=== PATIENT | female | born 1990 | race Hispanic/Latino ===

== ENCOUNTER 2020-03-02 01:32 | Inpatient (IN) | payer MEDICAID, OTHER ==
[2020-03-02] MEDS ORDERED: Promethazine HCl 25 MG/ML VIAL IM PRN ×4 (02:10→15:09)
[2020-03-02] MEDS ORDERED: Carboprost 250 MCG/ML AMP IM PRN (02:10)
[2020-03-02] MEDS ORDERED: Methylergonovine 0.2 MG/ML VIAL IM PRN (02:10)
[2020-03-02] MEDS ORDERED: Ibuprofen 800 MG TAB PO PRN (02:10)
[2020-03-02] MEDS ORDERED: Lidocaine 1% (PF) 30 ML VIAL SC PRN (02:10)
[2020-03-02] MEDS ORDERED: hydrALAZINE 20 MG/ML VIAL SLOW IVP PRN (02:10)
[2020-03-02] MEDS ORDERED: NS / Oxytocin 40 units/1000ml 1,000 ML IV PRN (02:10)
[2020-03-02] MEDS ORDERED: Acetaminophen 500 MG TAB PO PRN (02:10)
[2020-03-02] MEDS ORDERED: Misoprostol 200 MCG TAB PR PRN (02:10)
[2020-03-02] MEDS ORDERED: Ondansetron PF 4 MG/2 ML Vial IVP PRN ×3 (02:10→15:09)
[2020-03-02] MEDS ORDERED: Fentanyl 4 mcg/Bup 0.1% Cadd 100 ML ONE (02:14)
--- NOTE | 2020-03-02 02:20 | PDOC.FPROB ---
FMR OB H&P: HPI - History of Present Illness Chief Complaint: Contractions History of Present Illness: Patient is a at 39.4wk by LMP who presents to L&D with complains of contractions. The patient reports contractions started at 1700 and have increased in intensity. Now occurring every 2-3 minutes. She denies LOF, vaginal bleeding or abdominal discharge. No headache, vision changes, chest pain, SOB, abdominal pain and edema. Primary Care Physician: MELANIE Rapp FMR OB H&P: Current - Care : 3 Para: 2001 Gestational age: 39.4 Due date: 03/05/20 Dating Criteria: LMP Course/Complications: Anemia of - OB Labs Blood type: O RH: positive Antibody Screen: negative HIV: negative RPR: negative HepBsAg: negative Rubella: immune Gonorrhea: negative Chlamydia: negative Pap Smear: NILM 1 hour gtt: 145 GBS: negative H&H: 11.1/32.2 Additional labs: Hepatitis C negative FMR OB H&P: History - Past Medical History PMH: None - OB History OB History: CS on 08/19 at 40.0 wk in [place]. on 01/22 at 40.0wk. Hx SGA infants. - Surgical History Sx History: in 08/19 - Social History Social History: Denies tobacco use, ETOH use and drug use. - Family History Family History: Father - healthy, Mother - HLD, Paternal Aunt - Breast Cancer FMR OB H&P: Medications - Current Home Medications: Medication Instructions Recorded Confirmed Type Pnv No.95/Ferrous Fum/Folic AC 1 tab PO DAILY 03/02/20 03/02/20 History [ Formula Tablet] Allergies/Adverse Reactions: Allergies Allergy/AdvReac Type Severity Reaction Status Date / Time No Known Allergies Allergy Unverified 03/02/20 02:39 FMR OB H&P: ROS - Review of Systems General: denies: fatigue Eyes: denies: vision changes, double vision ENT: denies: nasal congestion, rhinorrhea Cardiovascular: denies: chest pain, palpitation Respiratory: denies: cough, shortness of breath Gastrointestinal: denies: abdominal pain, nausea Genitourinary (Female): reports: contractions. denies: vaginal discharge, vaginal pain, vaginal bleeding Musculoskeletal: denies: stiffness, swelling Neurologic: denies: syncope, weakness Psychological: denies: depression, anxiety FMR OB H&P: Vital Signs - Maternal Vital signs: BP 124/75 HR 69 RR 20 Temp 98.1 O2 sat 98 on RA - Heart Tones Baseline: 140 Variability: moderate Acceleration: present Deceleration: absent Category: category 1 [place] contractions every: 2-3 min FMR OB H&P: Physical Exam - Physical Exam General: NAD, awake, alert and oriented HEENT: normocephalic and atraumatic, conjunctiva clear Neck: FROM, trachea midline Chest: non-tender to palpation Heart: RRR, no edema General: CTAB, no respiratory distress Abdomen: gravid, non-tender Musculoskeletal: FROM in all four extremities, no misalignment/asymmetry Neurological: no focal deficit Skin: no rash, no jaundice Lymphatic: no unusual bruising or bleeding Psychiatric: normal mood and affect - Pelvic Exam Deviation from normal: /-2 Membranes: Intact Presentation: Cephalic FMR OB H&P: A/P Disposition: #vee IUP at 39.4wk here for contractions every 2-3 minutes. GBS negative. -Admit for labor -Cervical check Q2H -Desires epidural 0215 /-2, cat 1 strip #Anemia in -Taking PNV, no additional iron supplementation #GERD -Stable without medication #Hx with successful -Aware #Hx SGA infants -Most recent [place] 55% Dispo: Admit to L&D for labor Discussion: Date/Time: 03/02/20219 This H&P was discussed with [Tyshawn] who agree with the above documentation and plan.
[2020-03-02] MEDS ORDERED: diphenhydrAMINE 50 MG/ML VIAL IVP PRN ×3 (02:25→15:09)
[2020-03-02] MEDS ORDERED: Naloxone HCl 0.4 mg/ml Vial IVP PRN ×6 (02:25→15:09)
[2020-03-02] MEDS ORDERED: Acetaminophen 325 MG TAB PO PRN (02:25)
[2020-03-02] MEDS ORDERED: Lactated Ringer's 500 ML IV PRN (02:25)
[2020-03-02] MEDS ORDERED: EPHEDRINE 25 MG/5 ML SYRINGE SLOW IVP PRN (02:25)
[2020-03-02 02:26] LABS: Hemoglobin 12.8 g/dL (12.0-16.0); Mean Corpuscular HGB CONC 34.4 g/dL (32.0-36.0); Mean Corpuscular Hemoglobin 35.3 pg (27.0-31.0); Mean Platelet Volume 10.3 fL (7.4-10.4); Platelet Count 162 thou/uL (130-400); RBC Distribution Width 11.9 % (11.5-14.5); Red Blood Cell (RBC) Count 3.64 mill/uL (4.20-5.40); White Blood Cell (WBC) Count 11.4 thou/uL (4.8-10.8)
[2020-03-02] MEDS ORDERED: Communication Order-Pharmacy FS SCH ×3 (02:30→15:15)
[2020-03-02] MEDS ORDERED: Fentanyl 4 mcg/Bupivacaine 0.1% Cassette 100 ML EPIDURAL SCH (02:30)
[2020-03-02] MEDS: Lactated Ringer's 1,000 ML IV SCH ×2 (02:54→17:04)
[2020-03-02 03:06] LABS: Hep B Surf Ag Non-Reactive S/CO (NonReactive)
[2020-03-02 03:25] VITALS: BMI 33.5
--- NOTE | 2020-03-02 03:39 | PDOC.LDPN ---
Labor & Delivery Progress Note - Subjective Subjective: comfortable - Objective Vital signs reviewed and normal: yes General: NAD Uterine fundus: non tender Dilation: 5 Effacement: 90% Station: -2 FHT: category 1 [place] contractions every: 2-3 min Plan: continue plan of care -: #vee IUP at 39.4wk here for contractions every 2-3 minutes. GBS negative. -Cervical check Q2H -Epidural in place 0215 5/80/-2, cat 1 strip 0330 5/80/-2, cat 1 strip #Anemia in -Taking PNV, no additional iron supplementation #GERD -Stable without medication #Hx with successful -Aware #Hx SGA infants -Aware Dispo: Continue plan of care
[2020-03-02 04:09] LABS: Syphilis Antibody Nonreactive (Nonreactive); Syphilis Antibody Index 0.07 S/CO (<1.00 Non-Reactive)
[2020-03-02] MEDS ORDERED: Lidocaine 1% (PF) 30 ML VIAL ONE (04:45)
[2020-03-02] MEDS ORDERED: NS / Oxytocin 40 units/1000ml 1,000 ML ONE (04:45)
--- NOTE | 2020-03-02 05:02 | PDOC.LDPN ---
Labor & Delivery Progress Note - Subjective Subjective: comfortable - Objective Vital signs reviewed and normal: yes General: NAD Uterine fundus: non tender Dilation: 7 Effacement: 90% Station: -1 FHT: category 1 (140 baseline, + accels, no decels) [place] contractions every: 2 min Other exam findings: SROM, clear fluid Plan: continue plan of care -: #vee IUP at 39.4wk admitted to L&D for contractions. GBS negative. -Cervical check Q1H -Epidural in place 0215 5/80/-2, cat 1 strip 0330 5/80/-2, cat 1 strip 0440 /-1, SROM, cat 1 strip #Anemia in -Taking PNV, no additional iron supplementation #GERD -Stable without medication #Hx with successful -Aware #Hx SGA infants -Aware Dispo: Cervical check Q1H, continue plan of care
--- NOTE | 2020-03-02 06:05 | PDOC.LDPN ---
Labor & Delivery Progress Note - Subjective Subjective: comfortable - Objective Vital signs reviewed and normal: yes General: NAD, resting Uterine fundus: non tender Dilation: 8-9 Effacement: 90% Station: -1 FHT: category 1 (+ accels), early decelerations, variability present [place] contractions every: 2 min Plan: continue plan of care -: #vee IUP at 39.4wk admitted to L&D for contractions. GBS negative. -Cervical check Q1H -Epidural in place 0215 5/80/-2, cat 1 strip 0330 5/80/-2, cat 1 strip 0440 7/90/-1, SROM, cat 1 strip 0600 8-9//-1, cat 1 strip #Anemia in -Taking PNV, no additional iron supplementation #GERD -Stable without medication #Hx with successful -Aware #Hx SGA infants -Aware Dispo: Cervical check Q1H, continue plan of care
[2020-03-02] MEDS ORDERED: NS w/ Oxytocin 10 units 500 ML ONE (07:43)
--- NOTE | 2020-03-02 07:47 | PDOC.LDPN ---
Labor & Delivery Progress Note - Subjective Subjective: comfortable - Objective Vital signs reviewed and normal: yes General: NAD Uterine fundus: non tender Dilation: 9 Effacement: 100% Station: -1 FHT: category 2 (mod/no accels/variable decels) [place] contractions every: 2min AROM: clear fluid Resuscitative measures: maternal position change Plan: continue plan of care -: sIUP, TOLAC - SVE 9/100/-1, unchanged over last 2 hours. Placed IUPC, MVUs 125 will start Pit as tolerated. Transverse presentation - FHTs 140 Cat 2 due to variable decels. Mod variability. FSE placed due to difficulty maintaining FHTs externally. Hx Hx of Hx SGA infants
--- NOTE | 2020-03-02 08:25 | PDOC.EVN ---
Event Note - Event Note Event Note: SVE now 100/-1 with variables and now late decelerations. Discussed need for possible C/S due to tracing and narrow pubic arch with patient if baby does not tolerate pushing during second stage of labor. Patient agreeable. Will start pushing now.
[2020-03-02] MEDS ORDERED: Oxytocin 10 UNITS/ML VIAL ONE (08:43)
[2020-03-02] MEDS ORDERED: Lidocaine 2% MPF 10 ML AMP (For Epidural Use) ONE (08:43)
[2020-03-02] MEDS ORDERED: Bupivacaine 0.5% 10 ML VIAL ONE (08:43)
[2020-03-02] MEDS ORDERED: Bicitra 30 ML UDCUP PO SCH (08:45)
[2020-03-02] MEDS ORDERED: Azithromycin 500 MG in Sodium Chloride 0.9% 250 ML 250 ML IVPB SCH (08:45)
[2020-03-02] MEDS ORDERED: CEFAZOLIN 2 GM in Premix Bag 1 BAG IVPB SCH (08:45)
[2020-03-02] MEDS ORDERED: PHENYLEPHRINE-NS 100 MCG/ML 10 ML SYRINGE ONE ×2 (08:57→09:11)
[2020-03-02 09:04] LABS: Actual Bicarbonate (HCO3v) 18 mEq/L (22-28); Base Excess -9.2 mEq/L (-2.0 to +3.0)
[2020-03-02 09:07] LABS: Actual Bicarbonate (HCO3a) 18.8 mEq/L (22-28)
[2020-03-02 09:10] LABS: pH (Cord, venous) 7.24 (7.32-7.43)
--- NOTE | 2020-03-02 09:32 | PDOC.BPN ---
- Brief Progress Note Encounter Date: 03/02/20 Faculty OP note Preop DX: Unsuccessful TOLAC Persistent Cat II FHR tracing at second stage Unsuccessful VE attempts (3) Procedure: Repeat LTCS via prior vertical skin scar Surgeons: Dionte/Karthik Faculty (scrubbed and participated): Larry KAPADIA ABX: Per protocol Compl: none. NO VAG HAND USED Findings: NICU present Baby male, vigorous Apgars 8/9 Path: placenta Labs: umbilical gases sent (art and venous) Skin scar excised at end of case See full Op Note for details
--- NOTE | 2020-03-02 09:39 | PRG ---
DATE OF SERVICE: 03/02/2020 PRE-OP NOTE TIME OF INTERVENTION: Roughly 0835. LOCATION: Labor and Delivery in bed 2. In brief, this is a patient undergoing a trial of labor after (TOLAC) who is at 2nd stage of labor. About 20 minutes ago, I evaluated the patient at bedside and found her to have somewhat of a narrow pubic arch, but as she had had a previous vaginal delivery () in 2013, we elected to continue the trial of labor. However, the patient was noted to be 8 to 9 cm since about 5 to 5:30 this morning. Additionally, there has been some recurrent deep variable decelerations noted with some appearing in the late phase. We began pushing about 20 minutes ago and due to the heart rate variable decelerations, Dr. Mcmillan attempted a vacuum extraction while I was in the room. Two attempts were done, but the vacuum popped off with Dr. Rapp. I did the 3rd attempt with vacuum with no pop-off, but with no descent noted. Once I removed the vacuum cup, I noted that the head was again just really well applied onto the pubic symphysis. Because of this, I discussed with the patient that we would require a repeat . The patient has a prior vertical skin incision, so we will proceed through the same route. When the vacuum was applied, it was a low vacuum with station at +3, but with no descent. Again, station was +3, so this was a low vacuum attempt, but was unsuccessful. PREOPERATIVE DIAGNOSES: 1. Unsuccessful trial of labor after . 2. Unsuccessful vacuum extraction. 3. heart rate abnormalities (class 2). Job ID: [id number] [facility]
[2020-03-02] MEDS ORDERED: Ondansetron PF 4 MG/2 ML Vial ONE (10:08)
--- NOTE | 2020-03-02 10:35 | PDOC.OPDEL ---
OB Operative/Delivery Note - Additional Findings/Plan Compilations/Other Findings: Date of Procedure: 03/02/20 Resident Surgeon: Deyanira Rapp MD PYG-3 and Erica Angeles MD PGY-3 Attending Surgeon: Dr Grey Juarez Procedure: Repeat low transverse caesarean section with vertical skin incision Preoperative Diagnosis: 1) Term intrauterine 2) Previous 3) Prior 4) Prior vertical skin incision 5) 3 vaccuum attempts, unsuccessful 6) Unsuccessful TOLAC with Failure to Descend 7) Persistent cat II tracing Postoperative Diagnosis: 1) Term intrauterine 2) Previous 3) Prior 4) Prior vertical skin incision 5) Vertical scar revision 6) Unsuccessful TOLAC with Failure to Descend 7) Persistent cat II tracing Anesthesia: epidural Indications: The patient is a 29 year old female at 39.4 weeks gestation who presented in active labor desiring TOLAC, she progressed second stage with failure to descend and persistent Cat II FHR tracing. Also with noted narrow pubic arch on vaginal exam (Juarez). Procedure in Detail: After risks, benefits, and alternatives were explained to the patient, she gave informed consent. Pre-operative antibiotics included Cefazolin 2 gram IV and Azithromycin 500mg IV. The patient was taken to the operating room. She was placed in the supine position with a left tilt and prepped and draped in usual sterile fashion. A vertical skin incision was made in the area of the old scar with a scalpel and carried down to the level of the fascia which was sharply nicked. The fascial cut was extended bilaterally manually. The recti were divided digitally and retracted manually. The peritoneum was entered bluntly. Raffaele-O was inserted for retraction. A low transverse score was made with the scalpel and the uterus was entered in the midline with the scalpel. The hysterotomy was extended manually. The was noted to be vertex deep in the pelvix and was easily delivered by fundal pressure. Meconium was noted to be present. Cord clamped, cord gas collected and cut and grossly male infant was handed to waiting nurse. Cord blood was obtained. Placenta was expectantly extracted, found to be intact with 3 vessel cord and sent for pathology. The uterus was externalized and the endometrium was curetted with a dry lap. Due to patient pain tolerance the uterus was reinserted. The uterus was closed with a running locking #1 Monocryl suture followed by figure of eight sutures using #1 Monocryl on the maternal left of hysterotomy for hemostasis. Following this hemostasis was noted. The abdomen was irrigated with saline and suctioned free of clots. The hysterotomy was again noted to be hemostatic. The fascia was closed with a running non-locking 0-PDS suture. Scar was excised using scalpel and Linda clamps. The subcutaneous tissue was closed with 2-0 plain gut and bleeders were cauterized with Bovie. The skin was approximated with valdemar and a pressure dressing was placed. All counts were correct. The patient tolerated the procedure well and was taken to the recovery room in stable condition. Quantitative Blood Loss: 850 ml Complications: None Counts: Correct Specimens: Cord blood sent to lab for blood type, placenta sent for path Findings: Grossly normal male infant with Apgars of 8 and 9. Grossly normal placenta with 3 vessel cord sent to Pathology Drains: Tanner to gravity draining clear urine
[2020-03-02] MEDS ORDERED: L&D-Morphine 4 MG/ML VIAL SLOW IVP PRN (10:58)
[2020-03-02] MEDS ORDERED: Promethazine HCl 25 MG SUPP PR PRN ×2 (10:58→15:09)
[2020-03-02] MEDS ORDERED: Naloxone HCl 0.4 mg/ml Vial IV PRN ×2 (10:58→15:09)
[2020-03-02] MEDS ORDERED: HYDROmorphone 2 MG/ML VIAL SLOW IVP PRN (10:58)
[2020-03-02] MEDS ORDERED: Meperidine HCl/PF 25 MG/ML VIAL SLOW IVP PRN (10:58)
[2020-03-02 11:03] LABS: SARS-CoV-2 MS2 Positive; SARS-CoV-2 N Gene Negative; SARS-CoV-2 S Gene Negative; SARS-CoV-2 by NAA Not Detected (NotDetected); SARS-CoV-2 orf1ab Negative
[2020-03-02] MEDS ORDERED: Bisacodyl 10 MG SUPP PR PRN (12:41)
[2020-03-02] MEDS ORDERED: Simethicone Chewable 80 MG TAB PO PRN (12:41)
[2020-03-02] MEDS ORDERED: Zolpidem Tartrate 5 MG TAB PO PRN (12:41)
[2020-03-02] MEDS ORDERED: Lanolin Ointment 7 GM TUBE TOP PRN (12:41)
[2020-03-02] MEDS ORDERED: NS / Oxytocin 40 units/1000ml 1,000 ML IV SCH (12:41)
[2020-03-02] MEDS ORDERED: Ibuprofen 800 MG TAB PO SCH (14:00)
--- NOTE | 2020-03-02 15:45 | PDOC.PP ---
Post Progress Note Post Day #: 0 Subjective: Pain well controlled with medications, pain mostly at skin incision. Feels a little dizzy. Currently eating some Jello. Minimal lochia. Tanner catheter in place. . PO intake tolerated: yes Flatus: no Ambulation: no Vital Signs (12 hours) Temp Pulse Resp BP 03/02/20 14:05 76 20 97/54 L 03/02/20 13:05 98.7 F 75 20 115/60 Weight Weight 78.018 kg - Physical Examination General: NAD Cardiovascular: no m/r/g, RRR Respiratory: clear to auscultation bilaterally, non-labored breathing Abdominal: appropriately TTP Fundus firm & at: umbilicus Skin: CS incision dry & intact (with dressing) Neurological: no gross focal deficits Psychiatric: A&Ox3, normal affect Result Diagrams: 03/02/20 02:18 Additional Labs: Post Labs Hep Bs Antigen Non-Reactive S/CO (NonReactive) 03/02/20 02:18 Blood Type O POSITIVE 03/02/20 06:06 - Assessment/Plan sIUP, delivered via RLTCS with repeat vertical skin incision - C/S for failure to descend, vacuum x3 unsuccessful, persistent Cat II strip, narrow pubic arch - - H&H in AM - Continue routine PP care Failed TOLAC - Hx of s/p Vertical scar revision - Closed with valdemar. Will need f/u for removal at [facility] next week.
[2020-03-02] MEDS: Ketorolac Tromethamine 30 MG/ML VIAL IVP PRN (15:49)
[2020-03-02] MEDS: Ferrous Sulfate 325 MG TAB PO SCH (21:00)
[2020-03-02] MEDS: Docusate Calcium (SURFAK) 240 MG CAP PO SCH (21:00)
[2020-03-03] MEDS ORDERED: HYDROcodone/Acetaminophen 5/325 mg Tablet PO PRN (03:15)
[2020-03-03] MEDS: Ketorolac Tromethamine 30 MG/ML VIAL IVP PRN (04:10)
--- NOTE | 2020-03-03 07:22 | PDOC.PP ---
Post Progress Note Post Day #: 1 Subjective: Pain well controlled. Having a reaction to the tape, dressing has been removed. Not a diffuse rash but local skin irritation. Lochia about like a period. with good latch. Ambulating, tolerating diet, no difficulty with urination, passing gas. PO intake tolerated: yes Flatus: yes Ambulation: yes Vital Signs (12 hours) Temp Pulse Resp BP Pulse Ox 03/03/20 04:10 99.5 F 99 18 108/58 L 03/03/20 00:30 99.7 F H 90 18 101/57 L 03/02/20 20:00 99.6 F 88 18 109/60 96 Weight Weight 78.018 kg - Physical Examination General: NAD Cardiovascular: no m/r/g, RRR Respiratory: clear to auscultation bilaterally, non-labored breathing Abdominal: + bowel sounds, appropriately TTP Fundus firm & at: below umbilicus Skin: CS incision dry & intact (vertical incision with valdemar) Deviation from normal: Where the tape was placed laterally local irritation Neurological: no gross focal deficits Psychiatric: A&Ox3, normal affect Result Diagrams: 03/02/20 02:18 Additional Labs: Post Labs Hep Bs Antigen Non-Reactive S/CO (NonReactive) 03/02/20 02:18 Blood Type O POSITIVE 03/02/20 06:06 - Assessment/Plan sIUP, delivered via RLTCS with repeat vertical skin incision - C/S for failure to descend, vacuum x3 unsuccessful, persistent Cat II strip, narrow pubic arch - Meeting PP milestones - - AM H&H pending - Continue routine PP care - Contraception: Patch Failed TOLAC - Hx of s/p Vertical scar revision - Closed with valdemar. Will need f/u for removal at [facility] next week.
[2020-03-03 07:43] LABS: Hemoglobin 8.7 g/dL (12.0-16.0); Mean Corpuscular HGB CONC 33.1 g/dL (32.0-36.0); Platelet Count 132 thou/uL (130-400); Red Blood Cell (RBC) Count 2.49 mill/uL (4.20-5.40); White Blood Cell (WBC) Count 14.1 thou/uL (4.8-10.8)
[2020-03-03] MEDS: Polyethylene Glycol 3350 17 GM Packet PO SCH (08:29)
[2020-03-03] MEDS: Docusate Calcium (SURFAK) 240 MG CAP PO SCH ×2 (08:29→21:13)
[2020-03-03] MEDS: Prenatal Vitamin 1 TAB PO SCH (08:29)
[2020-03-03] MEDS: HYDROcodone/Acetaminophen 5/325 mg Tablet PO PRN ×3 (08:31→21:14)
[2020-03-03] MEDS: Ferrous Sulfate 325 MG TAB PO SCH ×3 (08:33→21:13)
[2020-03-03] MEDS: Ibuprofen 800 MG TAB PO SCH (21:13)
[2020-03-04] MEDS: HYDROcodone/Acetaminophen 5/325 mg Tablet PO PRN (02:56)
[2020-03-04] MEDS: Ibuprofen 800 MG TAB PO SCH ×2 (05:03→12:55)
[2020-03-04 07:43] VITALS: BP 112/59; TEMP 97.7
--- NOTE | 2020-03-04 07:52 | PDOC.PP ---
Post Progress Note Post Day #: 2 Subjective: Pain is well controlled with med, requiring [place]. Ambulating, tolerating PO, passing gas. . PO intake tolerated: yes Flatus: yes Ambulation: yes Vital Signs (12 hours) Temp Pulse Resp BP Pulse Ox 03/04/20 07:15 97.7 F 84 18 112/59 L 98 03/04/20 03:58 98.2 F 68 16 107/70 03/04/20 00:24 98.4 F 72 16 110/61 03/03/20 19:54 98.4 F 102 H 16 126/59 L 99 Weight Weight 78.018 kg - Physical Examination General: NAD Cardiovascular: no m/r/g, RRR Respiratory: clear to auscultation bilaterally, non-labored breathing Abdominal: + bowel sounds, appropriately TTP Fundus firm & at: below umbilicus Neurological: no gross focal deficits Psychiatric: A&Ox3, normal affect Result Diagrams: 03/03/20 07:24 Additional Labs: Post Labs Hep Bs Antigen Non-Reactive S/CO (NonReactive) 03/02/20 02:18 Blood Type O POSITIVE 03/02/20 06:06 - Assessment/Plan sIUP, delivered via RLTCS with repeat vertical skin incision - C/S for failure to descend, vacuum x3 unsuccessful, persistent Cat II strip, narrow pubic arch - Meeting PP milestones - - Continue routine PP care - Contraception: Patch PPH - Total QBL: 1077 (850 postop) - Hgb 12.8-> 8.7 Failed TOLAC - Hx of s/p Vertical scar revision - Closed with valdemar. Will need f/u for removal at [facility] next week. Dispo: Later today pending baby's bili
[2020-03-04] MEDS ORDERED: Acetaminophen/Codeine 30-300mg Tablet PO PRN ×2 (08:14)
[2020-03-04] MEDS: Ferrous Sulfate 325 MG TAB PO SCH (08:58)
[2020-03-04] MEDS: Docusate Calcium (SURFAK) 240 MG CAP PO SCH (08:58)
[2020-03-04] MEDS: Prenatal Vitamin 1 TAB PO SCH (08:59)
[2020-03-04] MEDS: Polyethylene Glycol 3350 17 GM Packet PO SCH (08:59)
== END 2020-03-04 13:20 | disposition home or self-care (01) | DRG 787 ==
LOC: L&D/OP 01:32 → L&D 02:10 → 3SW 13:45
PROVIDERS: ADMIT Obstetrics & Gynecology; ATTEND Obstetrics & Gynecology
PROC: 10D00Z1 Extraction of Products of Conception, Low, Open Approach (ICD-10-PCS; principal; 2020-03-02)
DX: O34.211 Maternal care for low transverse scar from previous cesarean delivery (principal); O72.1 Other immediate postpartum hemorrhage; Z20.828 Contact with and (suspected) exposure to other viral communicable diseases; O99.02 Anemia complicating childbirth; D64.9 Anemia, unspecified; O99.62 Diseases of the digestive system complicating childbirth; O77.9 Labor and delivery complicated by fetal stress, unspecified; K21.9 Gastro-esophageal reflux disease without esophagitis; O66.5 Attempted application of vacuum extractor and forceps; Z3A.39 39 weeks gestation of pregnancy; Z37.0 Single live birth
CPT/HCPCS: 36415; 51702; 82805; 85027; 86780; 86850; 86900; 86901; 87340; 87635; 88307; 99285; J0456; J0690; J1885; J2001; J2270; J2405; J2590; J3490; J7050; U0003

== ENCOUNTER 2023-02-28 15:45 | Emergency (ER) | payer MEDICAID, SELFPAY ==
[2023-02-28 16:39] LABS: #Eosinphils 0.1 thou/uL (0.0-0.7); #Monocytes 0.5 thou/uL (0.11-0.59); #Neutrophils 6.5 thou/uL (1.40-6.50); %Basophils 0.2 % (0.0-1.0); %Eosinophils 0.8 % (0.0-10.0); %Lymphocytes 24.9 % (21.0-51.0); %Monocytes 5.5 % (0.0-10.0); %Neutrophils 68.3 % (42.0-75.0); Hematocrit 36.7 % (36.0-47.0); Mean Corpuscular HGB CONC 32.7 g/dL (32.0-36.0); Mean Corpuscular Hemoglobin 33.7 pg (27.0-31.0); Mean Corpuscular Volume 103.1 fl (78.0-98.0); Mean Platelet Volume 10.4 fL (7.4-10.4); Platelet Count 258 10x3/uL (130-400); RBC Distribution Width 12.1 % (11.5-14.5); Red Blood Cell (RBC) Count 3.56 mill/uL (4.20-5.40); White Blood Cell (WBC) Count 9.5 10x3/uL (4.8-10.8)
[2023-02-28 20:28] LABS: Bacteria/HPF None Seen HPF (None Seen); Bilirubin Negative (Negative); Blood, Urine Negative (Negative); CAUTI Indications for Culture Pregnancy; Clarity Turbid (Clear); Glucose, Urine (Dipstick) Normal (Negative); Ketone, Urine Negative (Negative); Leukocyte Negative Leu/uL (Negative); Nitrite Negative (Negative); Protein, Urine (Dipstick) Negative (Neg-Trace); RBC/HPF 0-3 HPF (0-3); Specific Gravity, Urine 1.018 (1.002-1.036); Squamous Epithelial 0-3 HPF (0-3); Urine Culture Reflex Yes Yes; Urobilinogen Normal mg/dL (Less than 2); WBC/HPF None Seen HPF (0-3)
== END 2023-02-28 21:03 | disposition home or self-care (01) ==
LOC: ERS 15:45
DX: O20.0 Threatened abortion (principal); Z3A.01 Less than 8 weeks gestation of pregnancy
CPT/HCPCS: 36415; 76856; 81001; 84702; 85025; 86900; 86901; 87086; 93976

== ENCOUNTER 2023-03-03 14:09 | Emergency (ER) | payer SELFPAY ==
[2023-03-03 16:14] LABS: #Eosinphils 0.1 thou/uL (0.0-0.7); #Monocytes 0.6 thou/uL (0.11-0.59); #Neutrophils 10.4 thou/uL (1.40-6.50); %Basophils 0.3 % (0.0-1.0); %Eosinophils 0.6 % (0.0-10.0); %Lymphocytes 12.1 % (21.0-51.0); %Monocytes 4.8 % (0.0-10.0); %Neutrophils 81.9 % (42.0-75.0); Hematocrit 37.4 % (36.0-47.0); Hemoglobin 12.5 g/dL (12.0-16.0); Mean Corpuscular HGB CONC 33.4 g/dL (32.0-36.0); Mean Corpuscular Volume 101.6 fl (78.0-98.0); Mean Platelet Volume 9.9 fL (7.4-10.4); Platelet Count 259 10x3/uL (130-400); Red Blood Cell (RBC) Count 3.68 mill/uL (4.20-5.40); White Blood Cell (WBC) Count 12.7 10x3/uL (4.8-10.8)
== END 2023-03-03 17:35 | disposition home or self-care (01) ==
LOC: ERS 14:09
DX: O03.9 Complete or unspecified spontaneous abortion without complication (principal)
CPT/HCPCS: 36415; 84702; 85025; 88305; 99284